=== PATIENT | male | born 1940 | race Caucasian/White ===

== ENCOUNTER → 2019-08-09 | Outpatient (CLI) | payer MEDICARE ==
[~2019-08-09] MED LIST: FLUT1DIS3 INH; LEVO750T26 PO; UBID10CA5 PO
== END | disposition home or self-care (01) ==
LOC: CVU 12:30
PROVIDERS: ATTEND Family Medicine
DX: I70.203 Unspecified atherosclerosis of native arteries of extremities, bilateral legs (principal); I73.9 Peripheral vascular disease, unspecified
CPT/HCPCS: 93922; 93925